=== PATIENT | female | born 1945 ===

== ENCOUNTER 2016-09-15 09:43 | Emergency (ER) | payer OTHER ==
--- NOTE | 2016-09-15 11:28 | UC ---
Throat Pain/Nasal González HPI - HPI Summary HPI Summary: ONE WEEK OF FACIAL PRESSURE, NASAL CONGESTION, SORE THROAT, COUGH. NO FEVER. - History of Current Complaint Hx Obtained From: Patient Onset/Duration: Gradual Onset, Lasting Weeks, Worse Since - PROGRESSIVE Severity: Moderate Cough: Nonproductive Associated Signs & Symptoms: Positive: Sinus Discomfort, Nasal Discharge - Epiglottits Risk Factors Epiglottis Risk Factors: Negative <Marshall Lorenzo - Last Filed: 09/15/16 11:25> <Rhiannon Jimenez - Last Filed: 09/15/16 12:44> - History of Current Complaint Chief Complaint: UCRespiratory Stated Complaint: RESP COMPLAINT Time Seen by Provider: 09/15/16 10:42 PMH/Surg Hx/FS Hx/Imm Hx Previously Healthy: Yes - Surgical History Surgical History: None - Family History Known Family History: Negative: Respiratory Disease - Social History Occupation: Retired Lives: With Family Alcohol Use: Occasionally Substance Use Type: None Smoking Status (MU): Never Smoked Tobacco <Marshall Lorenzo - Last Filed: 09/15/16 11:25> Review of Systems Constitutional: Negative Skin: Negative Eyes: Negative ENT: Nasal Discharge Respiratory: Cough Cardiovascular: Negative Gastrointestinal: Negative Genitourinary: Negative Motor: Negative Neurovascular: Negative Musculoskeletal: Negative Neurological: Negative Psychological: Negative All Other Systems Reviewed And Are Negative: Yes <Marshall Lorenzo - Last Filed: 09/15/16 11:25> Physical Exam Triage Information Reviewed: Yes Appearance: No Pain Distress, Well-Nourished, Ill-Appearing - MILDLY, Thin Vital Signs: Initial Vital Signs Temp 98 F 09/15/16 09:44 Pulse 98 09/15/16 09:44 Resp 16 09/15/16 09:44 BP 131/69 09/15/16 09:44 Pulse Ox 100 09/15/16 09:44 Vital Signs Reviewed: Yes Eye Exam: Normal ENT: Positive: Hearing grossly normal, Pharyngeal erythema, Nasal congestion, TM bulging, TM dull Dental Exam: Normal Neck exam: Normal Neck: Positive: Supple, Nontender, No Lymphadenopathy Respiratory Exam: Other - COUGH Respiratory: Positive: Chest non-tender, Lungs clear, Normal breath sounds, No respiratory distress, No accessory muscle use Cardiovascular Exam: Normal Cardiovascular: Positive: RRR, No Murmur, Pulses Normal Abdominal Exam: Normal Musculoskeletal Exam: Normal Neurological Exam: Normal Psychological Exam: Normal Psychological: Positive: Normal Response To Family Skin Exam: Normal <Marshall Lorenzo - Last Filed: 09/15/16 11:25> Vital Signs: Initial Vital Signs Temp 98 F 09/15/16 09:44 Pulse 98 09/15/16 09:44 Resp 16 09/15/16 09:44 BP 131/69 09/15/16 09:44 Pulse Ox 100 09/15/16 09:44 <Rhiannon Jimenez - Last Filed: 09/15/16 12:44> Throat Pain/Nasal Course/Dx - Differential Dx/Diagnosis Differential Diagnosis/HQI/PQRI: Sinusitis, Tonsillitis, URI Provider Diagnoses: SINUSITIS <Marshall Lorenzo - Last Filed: 09/15/16 11:25> Discharge <Marshall Lorenzo - Last Filed: 09/15/16 11:25> <Rhiannon Jimenez - Last Filed: 09/15/16 12:44> - Discharge Plan Condition: Stable Disposition: HOME Prescriptions: Amoxicillin/Clavulanate TAB* [Augmentin TAB 875*] 875 mg PO BID #20 tab Fluticasone NASAL SPRAY 50MCG* [Flonase NASAL SPRAY 50MCG*] 2 spray BOTH NARES DAILY #1 btl Patient Education Materials: Sinusitis (ED) Referrals: Non Staff,Doctor [Primary Care Provider] - Attestation Statement User Type: Provider - I was available for consult. This patient was seen by the B[facility]. The patient was not presented to, seen by, or examined by me. -Jarrod <Rhiannon Jimenez - Last Filed: 09/15/16 12:44>
== END 2016-09-15 11:15 | disposition home or self-care (01) ==
LOC: UCEAST 09:43
DX: J32.9 Chronic sinusitis, unspecified (principal)
CPT/HCPCS: 99202; G0463